=== PATIENT | male | born 1935 ===

== ENCOUNTER 2017-08-01 14:32 | Observation (INO) | payer MEDICARE, MEDICAID ==
[2017-08-01] MEDS ORDERED: Sodium Chloride 0.9% 1,000 ML IV ONE ×2 (15:26→16:00)
--- NOTE | 2017-08-01 15:37 | ED PDOC ---
HPI: Altered Mental Status Time Seen by Provider: 08/01/17 14:52 Chief Complaint (Nursing): Weakness/Neurological Deficit History Per: Patient History/Exam Limitations: Clinical Condition Onset/Duration Of Symptoms: Gradual Onset Of Symptoms: Cannot Confirm Onset Current Symptoms Are (Timing): Still Present Usual Baseline: Alert Oriented Exacerbating Factor(s): Unknown Use Of Anticoag/Antiplatlets: No Character Of Deficits: Right: Weakness, Arm: Weakness, Leg: Weakness Severity: Moderate Additional History Per: Patient, Prior Records Associated Symptoms: Disoriented, Confused, Trouble Concentrating, Weakness. denies: Fever, Chills, Chest Pain, Neck Pain, Headache, Seizure Additional Complaint(s): Patient sent by [facility] for increasing weakness and fatigue. Patient has hx of stroke with Right sided weakness, ambulates with a cane. Per family member , he as been "falling asleep" during conversations and having increased difficultly walking. Past Medical History Reviewed: Historical Data, Nursing Documentation, Vital Signs Vital Signs: Last Vital Signs Temp 97.1 F L 08/01/17 14:43 Pulse 85 08/01/17 14:43 Resp 16 08/01/17 14:43 BP 123/67 08/01/17 14:43 Pulse Ox 100 08/01/17 14:43 - Medical History PMH: Benign Prostatic Hyperplasia, Diabetes, HTN, Hypercholesterolemia, Hyperlipidemia Denies: Asthma, Bronchitis, COPD, Emphysema, Pneumonia, Pulmonary Embolism, Chronic Kidney Disease, Sleep Apnea - Family History Family History: States: Unknown Family Hx - Living Arrangements Living Arrangements: Alone - Social History Current smoker - smoking cessation education provided: No - Home Medications Home Medications: Ambulatory Orders Medication Instructions Recorded Amlodipine Besylate/Benazepril 1 cap PO DAILY 08/01/17 [Lotrel 5-10 mg Capsule] Clopidogrel [Plavix] 75 mg PO DAILY 08/01/17 Famotidine [Pepcid] 20 mg PO BID 08/01/17 Gabapentin [Neurontin] 100 mg PO BID 08/01/17 MetFORMIN [glucoPHAGE] 1,000 mg PO BID 08/01/17 [place]-3 Fatty Acids [[place]-3] 1,000 mg PO BID 08/01/17 Tamsulosin [Flomax] 0.4 mg PO HS 08/01/17 lamoTRIgine [Lamictal] 25 mg PO BID 08/01/17 - Allergies Allergies/Adverse Reactions: Allergies Allergy/AdvReac Type Severity Reaction Status Date / Time No Known Allergies Allergy Verified 04/28/16 15:57 Review of Systems Review Of Systems: ROS cannot be obtained secondary to pt's inabilty to answer questions. Constitutional: Negative for: Fever, Chills Cardiovascular: Negative for: Chest Pain Respiratory: Negative for: Cough, Shortness of Breath Gastrointestinal: Negative for: Nausea, Vomiting, Abdominal Pain Genitourinary Male: Negative for: Dysuria Neurological: Positive for: Weakness (right sided chronic), Numbness (right sided chronic), Confusion, Altered Mental Status Physical Exam - Reviewed Nursing Documentation Reviewed: Yes Vital Signs Reviewed: Yes - Physical Exam Appears: Positive for: Uncomfortable Head Exam: Positive for: ATRAUMATIC, NORMAL INSPECTION, NORMOCEPHALIC Skin: Positive for: Normal Color, Warm Eye Exam: Positive for: Normal appearance, EOMI, PERRL ENT: Positive for: Pharynx Is (clear,mmm) Neck: Positive for: Normal, Painless ROM, Supple, Decreased ROM Cardiovascular/Chest: Positive for: Regular Rate, Rhythm. Negative for: Edema, Bradycardia, Tachycardia Respiratory: Positive for: Normal Breath Sounds. Negative for: Decreased Breath Sounds, Accessory Muscle Use, Crackles, Rales, Rhonchi, Stridor, Wheezing , Respiratory Distress, Plerual Rub Pulses-Radial (L): 2+ Pulses-Radial (R): 2+ Gastrointestinal/Abdominal: Positive for: Normal Exam, Bowel Sounds, Soft. Negative for: Tenderness Back: Positive for: Normal Inspection. Negative for: L CVA Tenderness, R CVA Tenderness Extremity: Negative for: Tenderness, Pedal Edema, Calf Tenderness, Deformity, Swelling Neurologic/Psych: Positive for: Alert, nursery technician II-XII, Oriented, Motor/Sensory Deficits (4/5 strength in rue and rle at baseline), Mood/Affect (flat). Negative for: Aphasia, Facial Droop - Laboratory Results Result Diagrams: 08/01/17 16:25 08/01/17 16:37 - ECG ECG: Positive for: Interpreted By Me ECG Rhythm: Positive for: Normal QRS, Normal ST Segment, Sinus Rhythm. Negative for: ST/T Changes Interpretation Of Abn EKG: rate of 78, no evidence of ischemia O2 Sat by Pulse Oximetry: 100 Pulse Ox Interpretation: Normal - Radiology X-Ray: Interpreted by Me X-Ray Interpretation: No Acute Disease - Progress ED Course And Treament: will admit for anemia and near syncope. pt agree's with plan will transfuse as symptomatic Re-evaluation Time: 17:30 Condition: Improved Disposition - Clinical Impression Clinical Impression: Symptomatic anemia, History of CVA (cerebrovascular accident), Near syncope - Patient ED Disposition Is Patient to be Admitted: Yes Counseled Patient/Family Regarding: Studies Performed, Diagnosis - Disposition Disposition Time: 17:30 Condition: STABLE Forms: [facility] ([facility]) - Pt Status Changed To: Hospital Disposition Of: Inpatient - Admit Certification Admit to Inpatient:: After my assessment, the patient will require hospitalization for at least two midnights. This is because of the severity of symptoms shown, intensity of services needed, and/or the medical risk in this patient being treated as an outpatient. - POA Present On Arrival: None
[2017-08-01 17:00] LABS: BASO # 0.1 K/uL (0.0-0.2); EOS # 0.4 K/uL (0.0-0.7); EOS % 3.9 % (0.0-4.0); HEMATOCRIT 27.5 % (35.0-51.0); LYMPH # 3.2 K/uL (1.0-4.3); LYMPH % 33.2 % (20.0-40.0); MEAN CELL VOLUME 62.5 fl (80.0-94.0); MEAN CORPUSCULAR HGB CONC 30.4 g/dL (33.0-37.0); MEAN PLATELET VOLUME 9.2 fl (7.2-11.7); MONO # 0.6 K/uL (0.0-0.8); MONO % 6.2 % (0.0-10.0); NEUT # 5.4 K/uL (1.8-7.0); NEUT % 55.7 % (50.0-75.0); RED CELL DISTRIBUTION WIDTH 20.6 % (11.5-14.5); WHITE BLOOD COUNT 9.7 K/uL (4.8-10.8)
[2017-08-01 17:02] LABS: PARTIAL THROMBOPLASTIN TIME 28.5 Seconds (25.6-37.1)
[2017-08-01 17:11] LABS: ALB/GLOB RATIO 1.6 (1.0-2.1); ALCOHOL SERUM < 10 mg/dl (0-10); ALKALINE PHOSPHATASE 92 U/L (38-126); ALT/SGPT 62 U/L (21-72); AST/SGOT 53 U/L (17-59); BILIRUBIN,TOTAL 0.4 mg/dl (0.2-1.3); BLOOD UREA NITROGEN 16 mg/dl (9-20); CALCIUM 9.6 mg/dL (8.4-10.2); CARBON DIOXIDE 23 mmol/L (22-30); CHLORIDE 103 mmol/L (98-107); GFR AFRICAN-AMERICAN > 60; GLUCOSE,RANDOM 201 mg/dL (75-110); LIPASE 205 U/L (23-300); POTASSIUM 4.7 MMOL/L (3.6-5.0); SODIUM 137 mmol/l (132-148)
[2017-08-01 17:27] LABS: RBC URINE 1 /hpf (0-3); URINE BILIRUBIN NEGATIVE (NEGATIVE); URINE BLOOD NEGATIVE (NEGATIVE); URINE COLOR YELLOW (YELLOW); URINE GLUCOSE (UA) 150 mg/dL (Normal); URINE KETONE NEGATIVE (NEGATIVE); URINE LEUKOCYTE ESTERASE NEG Leu/uL (Negative); URINE PROTEIN NEGATIVE (NEGATIVE); URINE UROBILINOGEN 0.2-1.0 mg/dL (0.2-1.0); WBC URINE 2 /hpf (0-5)
--- NOTE | 2017-08-01 18:55 | RAD ---
PROCEDURE: CHEST RADIOGRAPH, 1 VIEW HISTORY: Altered mental status. COMPARISON: 04/28/2016. FINDINGS: LUNGS: Clear. PLEURA: No pneumothorax or pleural fluid seen. CARDIOVASCULAR: No radiographic findings to suggest acute or significant cardiovascular disease. OSSEOUS STRUCTURES: No significant abnormalities. VISUALIZED UPPER ABDOMEN: Normal. OTHER FINDINGS: None. IMPRESSION: No active disease. No acute/significant interval changes. Concordant results with the preliminary interpretation rendered by the emergency department physician procedure.
--- NOTE | 2017-08-01 20:25 | CP.PCM.HP ---
History of Present Illness - History of Present Illness History of Present Illness: CC: Altered mental status This is an 82 year old male with a past medical history significant for ischemic with residual right sided weakness, chronic iron deficiency anemia of uncertain hypertension, hyperlipidemia, Type 2 diabetes mellitus, obesity, BPH , who presents to the ED sent by his PMD with the complaint of increased generalized weakness and fatigue over the past 3 days. The patient states that his fatigue has been getting progressively worse and currently it is hard for him to stay awake. He says that occasionally he feels lightheaded when standing. He has no other complaints at this time. He denies cp, sob, n/v/d, recent illness, fever, chills. Rest of ROS as below. In the ED, the patient was found to be hemodynamically stable. Given his previous history of stroke, a CT head was done which showed no new acute intracranial abnormalities, only evidence of previous CVA. Dr. Pinto was called from the ED for further neurologic workup. Laboratory results reveal a H & H of 8.3/27.5, which is lower that his norm which is a hemoglobin around 9. The patient is to be placed on telemetry observation for 1 unit of PRBC transfusion , as well as further workup for his alteration of mental status. PMD: Marlena Present on Admission - Present on Admission Any Indicators Present on Admission: No Review of Systems - Constitutional Constitutional: Daytime Sleepiness, Fatigue, Lethargy. absent: Anorexia, Chills , Excessive Sweating, Fever, Frequent Falls, Headache, Increased Appetite - EENT Eyes: absent: Blind Spots, Blurred Vision, Decreased Night Vision, Diplopia, Discharge Ears: absent: Decreased Hearing, Ear Discharge, Disequilibrium Nose/Mouth/Throat: absent: Epistaxis, Nasal Congestion, Nasal Trauma, Nose Pain - Cardiovascular Cardiovascular: absent: Chest Pain, Chest Pain at Rest, Chest Pain with Activity , Claudication, Diaphoresis - Respiratory Respiratory: absent: Cough, Dyspnea, Dyspnea on Exertion, Wheezing, Snoring, Pain on Inspiration - Gastrointestinal Gastrointestinal: absent: Abdominal Pain, Belching, Bloating, Change in Stool Character, Constipation, Cramping, Diarrhea, Excessive Flatus - Genitourinary Genitourinary: absent: Change in Urinary Stream, Difficulty Urinating, Hematuria , Pyuria, Nocturia, Urinary Hesitance, Urinary Urgency - Musculoskeletal Musculoskeletal: absent: Abnormal Gait, Arthralgias, Atrophy, Joint Swelling, Limited Range of Motion, Muscle Weakness - Integumentary Integumentary: absent: Change in Pigmentation, Changing Lesions, Furuncle, Hirsutism, Lesions, New Lesions, Photosensitivity, Pruritus - Neurological Neurological: Dizziness, Focal Weakness (Residual RUE weakness from previous CVA , denies any new weakness). absent: Numbness, Frequent Falls, Headaches, Lack of Coordination, Loss of Vision, Paresthesias, Syncope - Endocrine Endocrine: Fatigue. absent: Change in Body Appearance, Change in Libido, Deepening of Voice, Excessive Sweating, Heat Intolorance Past Patient History - Past Medical History & Family History Past Medical History?: Yes - Past Social History Smoking Status: Light Smoker < 10 Cigarettes Daily - CARDIAC Hx Hypercholesterolemia: Yes Hx Hypertension: Yes - PULMONARY Hx Asthma: No Hx Bronchitis: No Hx Chronic Obstructive Pulmonary Disease (COPD): No Hx Emphysema: No Hx Pneumonia: No Hx Pulmonary Embolism: No Hx Sleep Apnea: No - NEUROLOGICAL HX Cerebrovascular Accident: Yes (x2) - HEENT Hx Difficulty Chewing: Yes - RENAL Hx Chronic Kidney Disease: No - ENDOCRINE/METABOLIC Hx Diabetes Mellitus Type 2: Yes - HEMATOLOGICAL/ONCOLOGICAL Hx Blood Disorders: No - INTEGUMENTARY Hx Dermatological Problems: No - MUSCULOSKELETAL/RHEUMATOLOGICAL Hx Musculoskeletal Disorders: No Hx Falls: No - GASTROINTESTINAL Hx Gastrointestinal Disorders: No - GENITOURINARY/GYNECOLOGICAL Hx Genitourinary Disorders: Yes - PSYCHIATRIC Hx Psychophysiologic Disorder: No Hx Substance Use: No - ANESTHESIA Hx Anesthesia: No Meds Allergies/Adverse Reactions: Allergies Allergy/AdvReac Type Severity Reaction Status Date / Time No Known Allergies Allergy Verified 04/28/16 15:57 Physical Exam - Constitutional Appears: Confused, Other Additional comments: Lethargic, slow to respond to questions, but does answer appropriately - Head Exam Head Exam: ATRAUMATIC, NORMAL INSPECTION, NORMOCEPHALIC - Eye Exam Eye Exam: EOMI, Normal appearance, PERRL Pupil Exam: NORMAL ACCOMODATION, PERRL - ENT Exam ENT Exam: Mucous Membranes Moist, Normal Exam - Neck Exam Neck exam: Positive for: Normal Inspection - Respiratory Exam Respiratory Exam: Clear to Auscultation Bilateral, NORMAL BREATHING PATTERN - Cardiovascular Exam Cardiovascular Exam: REGULAR RHYTHM, RRR, +S1, +S2 - GI/Abdominal Exam GI & Abdominal Exam: Normal Bowel Sounds, Soft. absent: Tenderness - Rectal Exam Rectal Exam: Deferred - Extremities Exam Extremities exam: Positive for: normal inspection - Back Exam Back exam: NORMAL INSPECTION - Neurological Exam Neurological exam: Altered, CN II-XII Intact, Oriented x3 Additional comments: RUE 3/5 muscle strength, rest of his extremities 5/5 muscle strength - Psychiatric Exam Psychiatric exam: Normal Affect, Normal Mood Results - Vital Signs Recent Vital Signs: Last Vital Signs Temp 97.1 F L 08/01/17 14:43 Pulse 85 08/01/17 14:43 Resp 16 08/01/17 14:43 BP 123/67 08/01/17 14:43 Pulse Ox 100 08/01/17 19:34 - Labs Result Diagrams: 08/01/17 16:25 08/01/17 16:37 Labs: Laboratory Results - last 24 hr 08/01/17 08/01/17 08/01/17 16:00 16:25 16:37 WBC 9.7 RBC 4.40 Hgb 8.3 L Hct 27.5 L MCV 62.5 L D MCH 19.0 L MCHC 30.4 L RDW 20.6 H Plt Count 217 MPV 9.2 Neut % (Auto) 55.7 Lymph % (Auto) 33.2 [place] % (Auto) 6.2 Eos % (Auto) 3.9 Baso % (Auto) 1.0 Neut # 5.4 Lymph # 3.2 [place] # 0.6 Eos # 0.4 Baso # 0.1 PT 11.6 INR 1.1 APTT 28.5 Sodium 137 Potassium 4.7 Chloride 103 Carbon Dioxide 23 Anion Gap 16 BUN 16 Creatinine 0.8 Est GFR ( Amer) > 60 Est GFR (Non-Af Amer) > 60 Random Glucose 201 H Lactic Acid Calcium 9.6 Total Bilirubin 0.4 AST 53 ALT 62 Alkaline Phosphatase 92 Ammonia Troponin I < 0.0120 Total Protein 7.0 Albumin 4.3 Globulin 2.7 Albumin/Globulin Ratio 1.6 Lipase 205 Urine Color Urine Clarity Urine pH Ur Specific [place] Urine Protein Urine Glucose (UA) Urine Ketones Urine Blood Urine Nitrate Urine Bilirubin Urine Urobilinogen Ur Leukocyte Esterase Urine RBC (Auto) Urine Microscopic WBC Ur Squamous Epith Cells Urine Opiates Screen Urine Methadone Screen Ur Barbiturates Screen Ur Phencyclidine Scrn Ur Amphetamines Screen U Benzodiazepines Scrn U Oth Cocaine Metabols U Cannabinoids Screen Alcohol, Quantitative < 10 08/01/17 08/01/17 08/01/17 16:37 16:37 17:10 WBC RBC Hgb Hct MCV MCH MCHC RDW Plt Count MPV Neut % (Auto) Lymph % (Auto) [place] % (Auto) Eos % (Auto) Baso % (Auto) Neut # Lymph # [place] # Eos # Baso # PT INR APTT Sodium Potassium Chloride Carbon Dioxide Anion Gap BUN Creatinine Est GFR ( Amer) Est GFR (Non-Af Amer) Random Glucose Lactic Acid 2.7 H Calcium Total Bilirubin AST ALT Alkaline Phosphatase Ammonia < 9 L Troponin I Total Protein Albumin Globulin Albumin/Globulin Ratio Lipase Urine Color Urine Clarity Urine pH Ur Specific [place] Urine Protein Urine Glucose (UA) Urine Ketones Urine Blood Urine Nitrate Urine Bilirubin Urine Urobilinogen Ur Leukocyte Esterase Urine RBC (Auto) Urine Microscopic WBC Ur Squamous Epith Cells Urine Opiates Screen Negative Urine Methadone Screen Negative Ur Barbiturates Screen Negative Ur Phencyclidine Scrn Negative Ur Amphetamines Screen Negative U Benzodiazepines Scrn Negative U Oth Cocaine Metabols Negative U Cannabinoids Screen Negative Alcohol, Quantitative 08/01/17 08/01/17 17:10 19:20 WBC RBC Hgb Hct MCV MCH MCHC RDW Plt Count MPV Neut % (Auto) Lymph % (Auto) [place] % (Auto) Eos % (Auto) Baso % (Auto) Neut # Lymph # [place] # Eos # Baso # PT INR APTT Sodium Potassium Chloride Carbon Dioxide Anion Gap BUN Creatinine Est GFR ( Amer) Est GFR (Non-Af Amer) Random Glucose Lactic Acid 2.1 Calcium Total Bilirubin AST ALT Alkaline Phosphatase Ammonia Troponin I Total Protein Albumin Globulin Albumin/Globulin Ratio Lipase Urine Color Yellow Urine Clarity Clear Urine pH 6.0 Ur Specific [place] 1.013 Urine Protein Negative Urine Glucose (UA) 150 Urine Ketones Negative Urine Blood Negative Urine Nitrate Negative Urine Bilirubin Negative Urine Urobilinogen 0.2-1.0 Ur Leukocyte Esterase Neg Urine RBC (Auto) 1 Urine Microscopic WBC 2 Ur Squamous Epith Cells < 1 Urine Opiates Screen Urine Methadone Screen Ur Barbiturates Screen Ur Phencyclidine Scrn Ur Amphetamines Screen U Benzodiazepines Scrn U Oth Cocaine Metabols U Cannabinoids Screen Alcohol, Quantitative - EKG Data EKG Interpreted by: ER Physician EKG shows normal: Sinus rhythm, [place], Intervals, QRS complexes, ST-T waves Assessment & Plan - Assessment and Plan (Free Text) Plan: This is an 82 year old male with a past medical history significant for ischemic with residual right sided weakness, chronic iron deficiency anemia of uncertain hypertension, hyperlipidemia, Type 2 diabetes mellitus, obesity, BPH , who presents to [facility] with alteration of mental status 1) Altered mental status, likely from metabolic encephalopathy and/or anemia of chronic disease, r/o CVA, rule out seizure activity. No evidence of active infectious process. Drug toxicology negative 2) History of ischemic CVA 3) Acute on chronic iron deficiency anemia 4) Hypertension 5) Hyperlipidemia 6) Type 2 Diabetes mellitus 7) Obesity 8) BPH PLAN - Place on telemetry observation - Consultation with Dr. Pinto from ED, will f/u for additional recommendations - Transfuse 1 unit PRBC now. F/U repeat CBC in AM - Guiac the stool to ensure no active GI bleed - Continue Plavix 75 mg po daily - Continue Amlodipine and Lisinopril for htn control - Continue Metformin, add lispro sliding scale for insulin coverage while in house - Continue Neurontin 100 mg po BID for neuropathic pain - Continue [place]-3 Fatty Acids 1000 mg po BID - Continue Flomax for BPH - DVT propohylaxis with heparin sq - Careful monitoring of vitals - Date & Time Date: 08/01/17 Time: 20:30
--- NOTE | 2017-08-01 22:07 | CP.PCM.PCO ---
Physician Communication Note - Physician Communication Note Physician Communication Note: Consent obtained for Blood transfusion. Risk and benifits were explained.
[2017-08-01] MEDS: Insulin Lispro (humaLOG) 100 Units/ml Inj SC SCH (22:13)
[2017-08-01 23:43] VITALS: RESP 20
[2017-08-02 06:48] LABS: HEMATOCRIT 31.1 % (35.0-51.0); MEAN CELL VOLUME 64.7 fl (80.0-94.0); MEAN CORPUSCULAR HEMOGLOBIN 19.7 pg (27.0-31.0); MEAN CORPUSCULAR HGB CONC 30.4 g/dL (33.0-37.0); RED CELL DISTRIBUTION WIDTH 22.8 % (11.5-14.5); WHITE BLOOD COUNT 10.4 K/uL (4.8-10.8)
[2017-08-02 06:51] LABS: BLOOD UREA NITROGEN 12 mg/dl (9-20); CALCIUM 9.4 mg/dL (8.4-10.2); CARBON DIOXIDE 21 mmol/L (22-30); CHLORIDE 105 mmol/L (98-107); GFR AFRICAN-AMERICAN > 60; GLUCOSE,RANDOM 169 mg/dL (75-110); POTASSIUM 4.4 MMOL/L (3.6-5.0); SODIUM 138 mmol/l (132-148)
--- NOTE | 2017-08-02 08:25 | CT ---
PROCEDURE: CT HEAD WITHOUT CONTRAST. HISTORY: COMPARISON: Head CT without contrast 04/28/2016. TECHNIQUE: Axial computed tomography images were obtained through the head/brain without intravenous contrast. Radiation dose: Total exam DLP = 844 mGy-cm. This CT exam was performed using one or more of the following dose reduction techniques: Automated exposure control, adjustment of the mA and/or kV according to patient size, and/or use of iterative reconstruction technique. FINDINGS: HEMORRHAGE: No intracranial hemorrhage. BRAIN: Age related neuro degenerate changes are again identified comprised of diffuse cerebral atrophy chronic microangiopathy once again. The exam is unchanged in the interval. Subcortical calcification at the left frontal lobe is again seen posteriorly likely a postinflammatory or postinfectious. No local edema is seen and there is no mass-effect related. No suspicious extra-axial findings identified. VENTRICLES: Unremarkable. No hydrocephalus. CALVARIUM: Unremarkable. PARANASAL SINUSES: Multifocal sinusitis seen affecting the ethmoid air cells diffuse as well as the left frontal sinus including polyps or cysts at the left frontal sinus though slightly diminished in the interval. MASTOID AIR CELLS: Unremarkable as visualized. No inflammatory changes. OTHER FINDINGS: None. IMPRESSION: Stable age-related age-appropriate neuro degenerative changes are identified throughout the cerebrum. No acute intracranial findings are identified grossly. Follow-up MRI or CT are available if clinically warranted. Diminished left frontal sinus disease with recurrent persistent limited bilateral ethmoid sinusitis.
[2017-08-02] MEDS ORDERED: Omega-3-Acid Ethyl Esters 1 GM Cap PO SCH (09:00)
[2017-08-02] MEDS: Insulin Lispro (humaLOG) 100 Units/ml Inj SC SCH (09:09)
--- NOTE | 2017-08-02 10:46 | CP.PCM.DIS ---
Provider - Provider Date of Admission: 08/01/17 19:29 Attending physician: Saurav Franks DO Primary care physician: Dr. Mendiola Time Spent in preparation of Discharge (in minutes): 20 Hospital Course - Lab Results Lab Results: Most Recent Lab Values WBC 10.4 K/uL (4.8-10.8) 08/02/17 05:20 RBC 4.81 Mil/uL (4.40-5.90) 08/02/17 05:20 Hgb 9.5 g/dL (12.0-18.0) L 08/02/17 05:20 Hct 31.1 % (35.0-51.0) L 08/02/17 05:20 MCV 64.7 fl (80.0-94.0) L D 08/02/17 05:20 MCH 19.7 pg (27.0-31.0) L 08/02/17 05:20 MCHC 30.4 g/dL (33.0-37.0) L 08/02/17 05:20 RDW 22.8 % (11.5-14.5) H 08/02/17 05:20 Plt Count 206 K/uL (130-400) 08/02/17 05:20 MPV 9.2 fl (7.2-11.7) 08/01/17 16:25 Neut % (Auto) 55.7 % (50.0-75.0) 08/01/17 16:25 Lymph % (Auto) 33.2 % (20.0-40.0) 08/01/17 16:25 [place] % (Auto) 6.2 % (0.0-10.0) 08/01/17 16:25 Eos % (Auto) 3.9 % (0.0-4.0) 08/01/17 16:25 Baso % (Auto) 1.0 % (0.0-2.0) 08/01/17 16:25 Neut # 5.4 K/uL (1.8-7.0) 08/01/17 16:25 Lymph # 3.2 K/uL (1.0-4.3) 08/01/17 16:25 [place] # 0.6 K/uL (0.0-0.8) 08/01/17 16:25 Eos # 0.4 K/uL (0.0-0.7) 08/01/17 16:25 Baso # 0.1 K/uL (0.0-0.2) 08/01/17 16:25 PT 11.6 Seconds (9.8-13.1) 08/01/17 16:00 INR 1.1 (0.9-1.2) 08/01/17 16:00 APTT 28.5 Seconds (25.6-37.1) 08/01/17 16:00 Sodium 138 mmol/l (132-148) 08/02/17 05:20 Potassium 4.4 MMOL/L (3.6-5.0) 08/02/17 05:20 Chloride 105 mmol/L (98-107) 08/02/17 05:20 Carbon Dioxide 21 mmol/L (22-30) L 08/02/17 05:20 Anion Gap 16 (10-20) 08/02/17 05:20 BUN 12 mg/dl (9-20) 08/02/17 05:20 Creatinine 0.7 mg/dL (0.8-1.5) L 08/02/17 05:20 Est GFR ( Amer) > 60 08/02/17 05:20 Est GFR (Non-Af Amer) > 60 08/02/17 05:20 POC Glucose (mg/dL) 164 mg/dL (65-110) H 08/02/17 05:46 Random Glucose 169 mg/dL (75-110) H 08/02/17 05:20 Lactic Acid 2.1 MMOL/L (0.7-2.1) 08/01/17 19:20 Calcium 9.4 mg/dL (8.4-10.2) 08/02/17 05:20 Total Bilirubin 0.4 mg/dl (0.2-1.3) 08/01/17 16:37 AST 53 U/L (17-59) 08/01/17 16:37 ALT 62 U/L (21-72) 08/01/17 16:37 Alkaline Phosphatase 92 U/L (38-126) 08/01/17 16:37 Ammonia < 9 umo/L (16-60) L 08/01/17 16:37 Troponin I < 0.0120 ng/mL (0.00-0.120) 08/01/17 16:37 Total Protein 7.0 G/DL (6.3-8.2) 08/01/17 16:37 Albumin 4.3 g/dL (3.5-5.0) 08/01/17 16:37 Globulin 2.7 gm/dL (2.2-3.9) 08/01/17 16:37 Albumin/Globulin Ratio 1.6 (1.0-2.1) 08/01/17 16:37 Lipase 205 U/L (23-300) 08/01/17 16:37 Urine Color Yellow (YELLOW) 08/01/17 17:10 Urine Clarity Clear (Clear) 08/01/17 17:10 Urine pH 6.0 (5.0-8.0) 08/01/17 17:10 Ur Specific [place] 1.013 (1.003-1.030) 08/01/17 17:10 Urine Protein Negative mg/dL (NEGATIVE) 08/01/17 17:10 Urine Glucose (UA) 150 mg/dL (Normal) 08/01/17 17:10 Urine Ketones Negative mg/dL (NEGATIVE) 08/01/17 17:10 Urine Blood Negative (NEGATIVE) 08/01/17 17:10 Urine Nitrate Negative (NEGATIVE) 08/01/17 17:10 Urine Bilirubin Negative (NEGATIVE) 08/01/17 17:10 Urine Urobilinogen 0.2-1.0 mg/dL (0.2-1.0) 08/01/17 17:10 Ur Leukocyte Esterase Neg Tariq/uL (Negative) 08/01/17 17:10 Urine RBC (Auto) 1 /hpf (0-3) 08/01/17 17:10 Urine Microscopic WBC 2 /hpf (0-5) 08/01/17 17:10 Ur Squamous Epith Cells < 1 /hpf (0-5) 08/01/17 17:10 Urine Opiates Screen Negative (NEGATIVE) 08/01/17 17:10 Urine Methadone Screen Negative (NEGATIVE) 08/01/17 17:10 Ur Barbiturates Screen Negative (NEGATIVE) 08/01/17 17:10 Ur Phencyclidine Scrn Negative (NEGATIVE) 08/01/17 17:10 Ur Amphetamines Screen Negative (NEGATIVE) 08/01/17 17:10 U Benzodiazepines Scrn Negative (NEGATIVE) 08/01/17 17:10 U Oth Cocaine Metabols Negative (NEGATIVE) 08/01/17 17:10 U Cannabinoids Screen Negative (NEGATIVE) 08/01/17 17:10 Alcohol, Quantitative < 10 mg/dl (0-10) 08/01/17 16:37 Blood Type O POSITIVE 08/01/17 20:00 Antibody Screen Negative 08/01/17 20:00 Crossmatch See Detail 08/01/17 20:00 BBK History Checked Patient has bt 08/01/17 20:00 - Hospital Course Hospital Course: 82 year old male with a past medical history significant for 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 The patient states that his fatigue has been getting progressively worse and currently it is hard for him to stay awake. He says that occasionally he feels lightheaded when standing. He has no other complaints at this time. He denies cp, sob, n/v/d, recent illness, fever, chills. Rest of ROS In the ED, the patient was found to be hemodynamically stable. Given his previous history of stroke, a CT head was done which showed no new acute intracranial abnormalities, only evidence of previous CVA. 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 Generalized weakness most likely secondary to chronic anemia and de conditioning transfused 1unit PRBC PT at home no signs of infection no CVA 2. History of ischemic CVA- continue plavix. Not on Statin . started atorvastatin Follow up with PMD 3. Acute on chronic iron deficiency anemia- transfused 1 unit PRBC . started ferrous sulfate 4.Hypertension- on norvasc 5.Hyperlipidemia=- started atorvastatin 6. Type 2 Diabetes mellitus- on metformin 7. Obesity 8. BPH - on flomax Discharge Exam - Head Exam Head Exam: ATRAUMATIC, NORMAL INSPECTION, NORMOCEPHALIC - Eye Exam Eye Exam: EOMI, Normal appearance, PERRL Pupil Exam: NORMAL ACCOMODATION - ENT Exam ENT Exam: Normal Exam - Neck Exam Neck exam: Full Rom, Normal Inspection - Respiratory Exam Respiratory Exam: Clear to PA & Lateral, NORMAL BREATHING PATTERN. absent: Rhonchi, Wheezes - Cardiovascular Exam Cardiovascular Exam: REGULAR RHYTHM, +S1, +S2. absent: JVD - GI/Abdominal Exam GI & Abdominal Exam: Normal Bowel Sounds, Soft. absent: Distended, Guarding, Rebound, Tenderness - Rectal Exam Rectal Exam: Deferred - Extremities Exam Extremities exam: normal capillary refill, normal inspection, pedal pulses present - Back Exam Back exam: NORMAL INSPECTION - Neurological Exam Neurological exam: Alert, CN II-XII Intact, Oriented x3 Additional comments: right upper extremity weakness 4/5 ( old ) - Psychiatric Exam Psychiatric exam: Normal Affect, Normal Mood - Skin Skin Exam: Dry, Intact, Normal Color, Warm Discharge Plan - Discharge Medications Prescriptions: Atorvastatin [Lipitor] 20 mg PO DAILY #30 tab Ferrous Sulfate [Feosol] 325 mg PO BID #60 tab - Follow Up Plan Condition: STABLE Disposition: HOME/ ROUTINE Patient education suggested?: Yes Additional Instructions: PT as out patient Referrals: Corey Mendiola MD [Family Provider] -
[2017-08-02 11:20] LABS: CHOLESTEROL 199 mg/dL (0-199)
--- NOTE | 2017-08-02 11:23 | CARD ---
APPROVED REPORT EKG Measurement Heart [id number] <Conclusion> Normal sinus rhythm Nonspecific ST abnormality Abnormal ECG
[2017-08-02 12:49] VITALS: BP 121/72; PULSE 84; TEMP 97.4; O2SAT 97
== END 2017-08-02 14:23 | disposition home or self-care (01) ==
LOC: H.ER 14:32 → H.ERHOLD 19:29 → H.TEL 20:50
PROVIDERS: ADMIT Internal Medicine; ATTEND Internal Medicine
DX: R53.1 Weakness (principal); E11.9 Type 2 diabetes mellitus without complications; E66.9 Obesity, unspecified; Z68.30 Body mass index [BMI] 30.0-30.9, adult; E78.00 Pure hypercholesterolemia, unspecified; E78.5 Hyperlipidemia, unspecified; I10 Essential (primary) hypertension; N40.0 Benign prostatic hyperplasia without lower urinary tract symptoms; D50.9 Iron deficiency anemia, unspecified; Z86.73 Personal history of transient ischemic attack (TIA), and cerebral infarction without residual deficits
CPT/HCPCS: 36415; 36430; 70450; 71010; 80048; 80053; 80061; 81003; 82140; 82948; 83605; 83690; 84484; 85025; 85027; 85610; 85730; 86850; 86900; 86920; 87086; 93005; 96360; 97116; 97161; 99285; G0378; G0480; G8978; G8979; G8980; J7040; P9051

== ENCOUNTER 2018-05-14 10:08 | Emergency (ER) | payer MEDICARE, MEDICAID ==
--- NOTE | 2018-05-14 11:28 | ED PDOC ---
HPI:STROKE - Time Time: 10:28 - Historian Historian: Patient - Chief Complaint Chief Complaint: Weakness - Onset Date: 05/13/18 Time: 08:00 Onset: Yesterday (evening) - Location Location: Difficult to localize - Radiation Radiation: None - Severity of pain Maximum severity:: None - Associated Symptoms Associated symptoms:: Anticoagulant use (Pt denies however plavix filled end of March 2018 ) - Exacerbated by Exacerbated by:: Walking - Relieved by Relieved by:: Remaining Still - TPA Reason tPA is not being Administered: Times duration does not meet criteria - Notes: Notes:: 83 yo male with history of CVA, TIA, DM, HTN, AVM and PVD presents with feeling weakness in both lower extremities since last night. Pt states this has happened in the past. Pt states it is worse when he tries to walk and he now feels like he is too weak to walk. Pt normally walks with a cane at home. PT denies falls at home recently however EMS informed ROLLY Naidu that he has fallen at home last night. Pt denies headache, nausea, vomiting, chest pain, SOB. <Daniela Lux - Last Filed: 05/19/18 17:40> NIHSS Stroke Scale - Date/Time Evaluation Performed Date Performed: 05/14/18 Time Performed: 11:06 When Was NIHSS Performed: Baseline - How Severe is the Stroke Level of Consciousness: 1=Drowsy LOC to Questions: 0=Both comments correct LOC to commands: 0=Obeys both correctly Best Gaze: 0=Normal Visual: 3=Bilateral (PT unable to follow directions to completed task) Facial: 1=Minor asymmetry Motor Arm - Left: 0=No drift Motor Arm - Right: 0=No drift Motor Leg - Left: 0=No drift Motor Leg - Right: 0=No drift Limb Ataxia: 0=Absent Sensory: 0=Normal Best Language: 1=Mild to moderate aphasia Dysarthia: 1=Mild to moderate slurring Extinction & Inattention (Neglect): 0=Normal, no object Score: 7 <Daniela Lux - Last Filed: 05/19/18 17:40> rTPA Inclusion/Exclusion - Refusal of Treatment Patient Refused Treatment: No - Inclusion Criteria for Altepase Patient is 18 years or Older: Yes The Clinical Diagnosis of Ischemic Stroke That is Causing a Potentially Disabling Neurological Deficit: No Time of Onset is Well Established to be Less Than 270 Minute Before Treatment Would Begin: No - Exclusion Criteria for Altepase Uncontrolled Hypertension at Time of Treatment (Systolic BP above 185 or Diastolic BP above 110 mmHg): No History of: Intracranial hemorrhage Active Internal Bleeding: No Known Bleeding Diathesis Including but Not Limited to: Platelets Below 100,000/ mm,PTT Above 40 sec After Heparin Use, Current Use of Oral Anitcoagulant With INR Greater Than 1.7 or PT Greater Than 15 secs: No Evidence of an Intracranial Hemorrhage: Yes Evidence of Major Acute Infarct With Signs Greater Than 1/3 MCA Territory: No Suspicion of Subarachnoid Hemorrhage on Pretreatment Evaluation Even if CT Head Negative For Hemorrhage: No - Warning to TPA With Conditions Additional Condition (For 3-4.5 Hour Window): Age Greater Than 80, Prior Stroke and Diabetes <Daniela Lux - Last Filed: 05/19/18 17:40> Past Medical History Vital Signs: Last Vital Signs Temp 98.2 F 05/14/18 16:34 Pulse 95 H 05/14/18 16:34 Resp 23 05/14/18 16:34 BP 181/84 H 05/14/18 16:34 Pulse Ox 98 05/14/18 16:20 <Sharan Guerrero III - Last Filed: 05/14/18 18:03> Reviewed: Historical Data, Nursing Documentation, Vital Signs Vital Signs: Last Vital Signs Temp 98.5 F 05/14/18 10:39 Pulse 80 05/14/18 10:39 Resp 18 05/14/18 10:39 BP 169/80 H 05/14/18 10:39 Pulse Ox 99 05/14/18 10:39 - Medical History PMH: Benign Prostatic Hyperplasia, Diabetes, HTN, Hypercholesterolemia, Hyperlipidemia Denies: Asthma, Bronchitis, COPD, Emphysema, Pneumonia, Pulmonary Embolism, Chronic Kidney Disease, Sleep Apnea - Surgical History Surgical History: No Surg Hx - Family History Family History: States: Unknown Family Hx - Living Arrangements Living Arrangements: With Family (, however patient states has been sick) - Social History Current smoker - smoking cessation education provided: No Ex-Smoker (has not smoked in the last 12 months): No Alcohol: None Drugs: Denies <Daniela Lux - Last Filed: 06/25/18 17:40> - Home Medications Home Medications: Ambulatory Orders Medication Instructions Recorded Amlodipine Besylate/Benazepril 1 cap PO DAILY 08/01/17 [Lotrel 5-10 mg Capsule] Clopidogrel [Plavix] 75 mg PO DAILY 08/01/17 Famotidine [Pepcid] 20 mg PO BID 08/01/17 Gabapentin [Neurontin] 100 mg PO Q12 08/01/17 MetFORMIN [glucoPHAGE] 1,000 mg PO BID 08/01/17 lamoTRIgine [Lamictal] 25 mg PO Q12 08/01/17 Fenofibrate [Triglide] 160 mg PO DAILY 05/14/18 [id number] Ethyl Esters 1 GM 1 gm PO Q12 05/14/18 [Lovaza] SITagliptin [Januvia] 100 mg PO DAILY 05/14/18 - Allergies Allergies/Adverse Reactions: Allergies Allergy/AdvReac Type Severity Reaction Status Date / Time No Known Allergies Allergy Verified 04/28/16 15:57 Review of Systems ROS Statement: Except As Marked, All Systems Reviewed And Found Negative Constitutional: Negative for: Fever, Chills Cardiovascular: Negative for: Chest Pain, Palpitations Respiratory: Negative for: Cough, Shortness of Breath Gastrointestinal: Negative for: Nausea, Vomiting, Abdominal Pain Neurological: Positive for: Altered Mental Status (Does not know date ). Negative for: Numbness, Incoordination, Headache, Dizziness <Daniela Lux - Last Filed: 05/19/18 17:40> Physical Exam - Reviewed Nursing Documentation Reviewed: Yes Vital Signs Reviewed: Yes - Physical Exam Appears: Positive for: Well, Non-toxic, No Acute Distress Head Exam: Positive for: ATRAUMATIC, NORMAL INSPECTION, NORMOCEPHALIC Skin: Positive for: Normal Color, Warm, DRY Eye Exam: Positive for: Normal appearance, EOMI, PERRL ENT: Positive for: Normal ENT Inspection Neck: Positive for: Normal, Painless ROM Cardiovascular/Chest: Positive for: Regular Rate, Rhythm Respiratory: Positive for: CNT, Normal Breath Sounds Gastrointestinal/Abdominal: Positive for: Normal Exam, Soft Back: Positive for: Normal Inspection Extremity: Positive for: Normal ROM, Other (Slight weakness right UE) Neurologic/Psych: Positive for: Alert, Oriented, Aphasia (Slight ), Facial Droop (Slight). Negative for: Gait (Unable to be assessed ) <Daniela Lux - Last Filed: 05/19/18 17:40> - Laboratory Results Result Diagrams: 05/14/18 11:21 05/14/18 11:21 <Sharan Guerrero III - Last Filed: 05/14/18 18:03> - Laboratory Results Result Diagrams: 05/14/18 11:21 05/14/18 11:21 - ECG O2 Sat by Pulse Oximetry: 99 Pulse Ox Interpretation: Normal <Daniela Lux - Last Filed: 05/19/18 17:40> Medical Decision Making Medical Decision Making: attending note Patient seen and examined, agree w findings. I took over care when ICH recognized. 83yo M apparently on plavix w hx CVA, residual R sided weakness, AVM discovered on that admission 2 yrs ago. Now today presents w vague c/o generalized weakness and poor ambulation, continued R sided weakness. Unknown onset, poor historian. Niece later arrived stating has had falls over last several weeks, notes new dysarthria and confusion. Initial CT showed L ICH likely near area of AVM Discussed case w Dr Fishman who rec transfer for intervention, did not recommend platelets, known to take plavix although ? compliance. D/w Dr Chavez who saw patient, she discussed case w Dr Bonilla, rec repeat CT in 4hrs if expanding will transfer ICU Dr Berry also made aware for possible admission but repeat CT showed slight expansion of hematoma hence decision to transfer to [facility]. Dr Carolina at ICU criss aware, accepted by Dr Martins hospitalist. Niece and patient consented to transfer. Mental status remains alert, intermittent confusion, R arm/leg strength 3/5 w dysarthria ICU initiated cardene drip, to titrate. critical care time 90minutes <Sharan Guerrero III - Last Filed: 05/14/18 18:03> Medical Decision Making: EKG - Sinus rhythm with non-specific changes at [address] - Interval left posterior frontal/parietal intra cerebral hematoma with surrounding edema and possible minimal -mild mass-effect on the left frontal horn. No midline shift. No dilatation of the right lateral ventricle appreciated. No interval dilatation of other particular segments noted. Prior to this report dictation, the urgent findings of a left intercerebral hematoma was directly called in to the ER physician Dr. Guerrero at approximately 11 :18 am. Elevated WBC, mild anemia. <Daniela Lux - Last Filed: 05/19/18 17:40> Disposition <Sharan Guerrero III - Last Filed: 05/14/18 18:03> - Disposition Disposition: Other Institution Disposition Time: 18:15 <Daniela Lux - Last Filed: 05/19/18 17:40> - Clinical Impression Clinical Impression: AVM (arteriovenous malformation) brain, Intracranial hemorrhage
--- NOTE | 2018-05-14 11:32 | CT ---
PROCEDURE: CT HEAD WITHOUT CONTRAST. HISTORY: LE weakness, hx CVA COMPARISON: 08/01/2017 TECHNIQUE: Axial computed tomography images were obtained through the head/brain without intravenous contrast. Radiation dose: Total exam DLP = 823 mGy-cm. This CT exam was performed using one or more of the following dose reduction techniques: Automated exposure control, adjustment of the mA and/or kV according to patient size, and/or use of iterative reconstruction technique. FINDINGS: HEMORRHAGE: There is an interval left posterior frontal/parietal lobe 4.2 x 2.7 cm hematoma with surrounding edema and ipsilateral effacement of the regional left cortical sulci here. The craniocaudal extent is 4.1 cm. BRAIN: There are similar dural calcifications present. An similar punctate mostly left-sided knowles calcifications present frontal lobe left parietal lobe as well. . Minimal/mild mass effect on the left frontal horn soft left lateral ventricle is possible comparing the current study with the prior study. No midline shift seen Background cerebral atrophy elsewhere background periventricular hypodense micro vascular ischemic disease is also inferred and re- suggested. A left basal ganglionic known is similar in appearance VENTRICLES: As above CALVARIUM: Unremarkable. PARANASAL SINUSES: Paranasal sinus inflammatory changes including a large left frontal air cell retention cyst and/or polyp is renoted. MASTOID AIR CELLS: Unremarkable as visualized. No inflammatory changes. OTHER FINDINGS: None. IMPRESSION: Interval left posterior frontal/parietal intra cerebral hematoma with surrounding edema and possible minimal -mild mass-effect on the left frontal horn. No midline shift. No dilatation of the right lateral ventricle appreciated. No interval dilatation of other particular segments noted. Prior to this report dictation, the urgent findings of a left intercerebral hematoma was directly called in to the ER physician Dr. Guerrero at approximately 11 :18 am.
[2018-05-14 11:35] LABS: BASO # 0.1 K/uL (0.0-0.2); BASO % 0.5 % (0.0-2.0); EOS # 0.4 K/uL (0.0-0.7); EOS % 3.4 % (0.0-4.0); HEMOGLOBIN 10.5 g/dL (12.0-18.0); LYMPH # 2.4 K/uL (1.0-4.3); LYMPH % 19.4 % (20.0-40.0); MEAN CELL VOLUME 70.2 fl (80.0-94.0); MEAN CORPUSCULAR HEMOGLOBIN 22.6 pg (27.0-31.0); MEAN CORPUSCULAR HGB CONC 32.2 g/dL (33.0-37.0); MEAN PLATELET VOLUME 9.5 fl (7.2-11.7); MONO # 0.8 K/uL (0.0-0.8); MONO % 6.2 % (0.0-10.0); NEUT # 8.6 K/uL (1.8-7.0); NEUT % 70.5 % (50.0-75.0); RBC 4.63 Mil/uL (4.40-5.90); RED CELL DISTRIBUTION WIDTH 19.6 % (11.5-14.5); WHITE BLOOD COUNT 12.3 K/uL (4.8-10.8)
[2018-05-14 11:44] LABS: INR 1.1 (0.9-1.2); PARTIAL THROMBOPLASTIN TIME 28.7 Seconds (25.6-37.1)
[2018-05-14 11:46] LABS: ALB/GLOB RATIO 1.3 (1.0-2.1); ALBUMIN 4.1 g/dL (3.5-5.0); ALT/SGPT 31 U/L (21-72); AST/SGOT 46 U/L (17-59); BLOOD UREA NITROGEN 14 mg/dl (9-20); CALCIUM 9.4 mg/dL (8.4-10.2); GFR AFRICAN-AMERICAN > 60; GFR NON-AFRICAN AMERICAN > 60
--- NOTE | 2018-05-14 11:48 | CP.PCM.PN ---
Subjective - Date & Time of Evaluation Date of Evaluation: 05/14/18 Time of Evaluation: 11:46 - Subjective Subjective: called by ER acute ICH Left fronto-parietal known AVM underlying this no acute surgery but as he did not follow up with neurovascular surgeon in 2013 he probably should be transfered to a facility that has a vascular neurosurgeon for 2 reasons. It would be dangerous to operate on the ICH if it bacame larger without benifit of ability to deal with underlying pathology and he should become known to a program that can deal electivly with the underlying AVM Objective - Vital Signs/Intake and Output Vital Signs (last 24 hours): Temp Pulse Resp BP Pulse Ox 98.5 F 80 18 169/80 H 99 05/14/18 10:39 05/14/18 10:39 05/14/18 10:39 05/14/18 10:39 05/14/18 11:45 - Labs Labs: 05/14/18 11:21 PT 12.0 Seconds (9.8-13.1) 05/14/18 11:21 INR 1.1 (0.9-1.2) 05/14/18 11:21 APTT 28.7 Seconds (25.6-37.1) 05/14/18 11:21
--- NOTE | 2018-05-14 12:33 | CT ---
PROCEDURE: CT Cervical Spine without contrast HISTORY: possible fall COMPARISON: None available. TECHNIQUE: Axial computed tomography images were obtained of the cervical spine without the use of intravenous contrast. Coronal and sagittal reformatted images were created and reviewed. Radiation dose: Total exam DLP = 646 mGy-cm. This CT exam was performed using one or more of the following dose reduction techniques: Automated exposure control, adjustment of the mA and/or kV according to patient size, and/or use of iterative reconstruction technique. FINDINGS: VERTEBRAE: No fracture. Normal alignment. No destructive bony lesion. Diffuse cervical spondylosis, diffuse uncovertebral hypertrophy. Diffuse apophyseal joint hypertrophy. DISCS/SPINAL CANAL/NEURAL FORAMINA: No significant central canal or neural foraminal stenosis. Discs heights most narrowed at C6-7 were subchondral endplate sclerotic changes are present. PARASPINAL SOFT TISSUES: Unremarkable. OTHER FINDINGS: Paranasal sinus inflammatory changes. Cerebral atrophy inferred on portions of the intracranial anatomy included on this field of view. IMPRESSION: No fracture or subluxation. Multilevel arthrosis. Chronic sinus disease.
--- NOTE | 2018-05-14 12:35 | RAD ---
PROCEDURE: Radiographs of the right elbow. HISTORY: right elbow pain COMPARISON: No prior. FINDINGS: BONES: Generalized osteopenia. . No fracture. JOINTS: Normal. No osteoarthritis. SOFT TISSUES: Normal. JOINT EFFUSION: None. OTHER FINDINGS: Phleboliths suggested IMPRESSION: No fracture or dislocation appreciated. Generalized osteopenia. Comments the lateral view is obliqued.
[2018-05-14] MEDS ORDERED: Iodixanol 320 MG/ML 100 ML BOTTLE IV ONE (12:36)
[2018-05-14] MEDS ORDERED: Sodium Chloride 0.9% 50 ML IV ONE (12:36)
[2018-05-14] MEDS ORDERED: Mannitol 12.5 gm/50 ml Inj IV ONE (16:15)
[2018-05-14] MEDS ORDERED: Nicardipine HCl 40 MG/200 ML 40 MG/200 ML SOL IV SCH (16:15)
--- NOTE | 2018-05-14 16:49 | CP.PCM.HP ---
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 He states that currently he feels too weak to walk. Normally he ambulates with a cane. According to EMS the patient had a fall at home last night. In the ED, the patient had a Head CT which revealed an interval left posterior frontal/ parietal intra cerebral hematoma with surrounding edema and possible minimal/ mild mass effect on the left frontal horn. There is no mildline shift at this time. Given these findings, neurosurgery was called- Dr. Fishman stated the patient should be transferred. ER physician called interventional neurologist at [facility], Dr. Bonilla, who stated that if the hematoma was stable after repeat CT scan at 5 pm he could be managed here at [facility]. The patient is currently somnolent but easily arousable; however he is unable to follow commands or answer questions. PMD: Dr. Mendiola Surrogate Decision Maker: Christina Uriarterio, niece (next of kin)- confirmed patient is full code after discussion I had with her Present on Admission - Present on Admission Any Indicators Present on Admission: No History of DVT/PE: No Review of Systems - Review of Systems Systems not reviewed;Unavailable: Altered Mental Status Past Patient History - Infectious Disease Hx of Infectious Diseases: None - Past Medical History & Family History Past Medical History?: Yes Past Family History: Reviewed and not pertinent - Past Social History Smoking Status: Unknown If Ever Smoked Alcohol: None Drugs: Denies - CARDIAC Hx Cardiac Disorders: Yes - PULMONARY Hx Asthma: No Hx Bronchitis: No Hx Chronic Obstructive Pulmonary Disease (COPD): No Hx Emphysema: No Hx Pneumonia: No Hx Pulmonary Embolism: No Hx Sleep Apnea: No - NEUROLOGICAL Hx Neurological Disorder: Yes - HEENT Hx HEENT Problems: Yes - RENAL Hx Chronic Kidney Disease: No - ENDOCRINE/METABOLIC Hx Endocrine Disorders: Yes - HEMATOLOGICAL/ONCOLOGICAL Hx Blood Disorders: No - INTEGUMENTARY Hx Dermatological Problems: No - MUSCULOSKELETAL/RHEUMATOLOGICAL Hx Falls: No - GASTROINTESTINAL Hx Gastrointestinal Disorders: No - GENITOURINARY/GYNECOLOGICAL Hx Genitourinary Disorders: Yes - PSYCHIATRIC Hx Psychophysiologic Disorder: No Hx Substance Use: No - ANESTHESIA Hx Anesthesia: No Hx Anesthesia Reactions: No Meds Allergies/Adverse Reactions: Allergies Allergy/AdvReac Type Severity Reaction Status Date / Time No Known Allergies Allergy Verified 04/28/16 15:57 Physical Exam - Additional Findings Additional findings: Physical exam: Constitutional- cooperative, somnolent but easily arousable. Head- NCAT, PERRL. Eye- PERRL, EOMI. + Cataracts ENT- normal exam, MMM. Neck- normal inspection, supple, no JVD Respiratory- CTAB, no wheezes rales rhonchi Cardiovascular- RRR, +S1, +S2 no MRG GI/Abdominal- normal bowel sounds, soft, no mass, no hsm Skin- warm, dry Extremities Exam- normal capillary refill, normal inspection Neurological Exam- somnolent but easily arousable. Unable to follow commands- limited neuro examination. Psych- not examind Results - Vital Signs Recent Vital Signs: Last Vital Signs Temp 98.2 F 05/14/18 16:34 Pulse 95 H 05/14/18 16:34 Resp 23 05/14/18 16:34 BP 181/84 H 05/14/18 16:34 Pulse Ox 98 05/14/18 16:20 - Labs Result Diagrams: 05/14/18 11:21 05/14/18 11:21 Labs: Laboratory Results - last 24 hr 05/14/18 05/14/18 05/14/18 10:31 11:05 11:21 WBC 12.3 H RBC 4.63 Hgb 10.5 L Hct 32.5 L MCV 70.2 L D MCH 22.6 L MCHC 32.2 L RDW 19.6 H Plt Count 232 MPV 9.5 Neut % (Auto) 70.5 Lymph % (Auto) 19.4 L [place] % (Auto) 6.2 Eos % (Auto) 3.4 Baso % (Auto) 0.5 Neut # (Auto) 8.6 H Lymph # (Auto) 2.4 [place] # (Auto) 0.8 Eos # (Auto) 0.4 Baso # (Auto) 0.1 PT INR APTT Sodium Potassium Chloride Carbon Dioxide Anion Gap BUN Creatinine Est GFR ( Amer) Est GFR (Non-Af Amer) POC Glucose (mg/dL) 201 H 182 H Random Glucose Calcium Total Bilirubin AST ALT Alkaline Phosphatase Troponin I Total Protein Albumin Globulin Albumin/Globulin Ratio 05/14/18 05/14/18 11:21 11:21 WBC RBC Hgb Hct MCV MCH MCHC RDW Plt Count MPV Neut % (Auto) Lymph % (Auto) [place] % (Auto) Eos % (Auto) Baso % (Auto) Neut # (Auto) Lymph # (Auto) [place] # (Auto) Eos # (Auto) Baso # (Auto) PT 12.0 INR 1.1 APTT 28.7 Sodium 138 Potassium 4.2 Chloride 106 Carbon Dioxide 23 Anion Gap 13 BUN 14 Creatinine 0.8 Est GFR ( Amer) > 60 Est GFR (Non-Af Amer) > 60 POC Glucose (mg/dL) Random Glucose 193 H Calcium 9.4 Total Bilirubin 0.6 AST 46 ALT 31 Alkaline Phosphatase 62 Troponin I < 0.0120 Total Protein 7.3 Albumin 4.1 Globulin 3.2 Albumin/Globulin Ratio 1.3 Assessment & Plan - Assessment and Plan (Free Text) Plan: This is an 82 year old male with a past medical history significant for ischemic with residual right sided weakness, chronic iron deficiency anemia of uncertain hypertension, hyperlipidemia, Type 2 diabetes mellitus, obesity, BPH , who presents to [facility] with an acute left posterior frontal/parietal intracerebral hematoma with surrounding edema. 1) Acute left posterior intracerebral hematoma with surrounding edema, with underlying AVM. - Admit to ICU - Neurosurgery consultation with Dr. Fishman - Repeat CT scan at 5 pm, if no changes will keep the patient in house. If CT worsens we will transfer to [place]. - Cardene drip initialized for BP control - Neuro checks q hours - NPO status - PT/ST consult if patient stays - Hold Plavix and any other anticoagulation 2) HTN - Cardene drip as above - monitor 3) Type 2 Diabetes mellitus - Lispro sliding scale with accucheks - Hold Metformin 4) Hyperlipidemia - Restart statin when diet advanced 5) Obesity - chronic 6) BPH - Flomax when able to take PO 7) Iron deficiency anemia - chronic - stable 8) DVT prophylaxis - SCDs
[2018-05-14] MEDS ORDERED: NICARDIPINE ONE (16:55)
[2018-05-14] MEDS ORDERED: Insulin Lispro (humaLOG) 100 Units/ml Inj SC SCH (17:00)
--- NOTE | 2018-05-14 17:18 | CT ---
PROCEDURE: CT HEAD WITHOUT CONTRAST. HISTORY: f/u Left posterior fronto-parietal hemorrhage COMPARISON: CT head performed earlier the same day at approximately 11 a.m.. TECHNIQUE: Axial computed tomography images were obtained through the head/brain without intravenous contrast. Radiation dose: Total exam DLP = 2304.2 mGy-cm. This CT exam was performed using one or more of the following dose reduction techniques: Automated exposure control, adjustment of the mA and/or kV according to patient size, and/or use of iterative reconstruction technique. FINDINGS: HEMORRHAGE: Similar appearance of a parietal hematoma with surrounding edema which impresses upon the posterior portion of the left lateral ventricle. Exact comparison of measurement is difficult due to differences in acquisition plane, but the hematoma appears subjectively larger. BRAIN: Atrophy. Chronic microvascular ischemic changes. Left caudate head lacunar infarction redemonstrated. VENTRICLES: As above. Prominent. No hydrocephalus. IMPRESSION: Subjective mild expansion of the left parietal hematoma with mild surrounding edema impressing upon the posterior portion of the body of the left lateral ventricle. No other significant interval change.
--- NOTE | 2018-05-14 17:34 | CT ---
PROCEDURE: CT Angiography of the Brain. HISTORY: hx L AVM, now ICH COMPARISON: Brain MRI with contrast 04/30/2016. TECHNIQUE: CT angiography of the intracranial and neck arteries was performed. Coronal and sagittal maximum intensity projection reformatted images were generated. Contrast Dose: Visipaque 320, 100 cc Radiation dose:Total exam DLP = 2129.55 mGy-cm. This CT exam was performed using one or more of the following dose reduction techniques: Automated exposure control, adjustment of the mA and/or kV according to patient size, and/or use of iterative reconstruction technique. FINDINGS: INTERNAL CEREBRAL ARTERIES: Moderate bilateral cavernous internal carotid artery segmental atherosclerotic related stenoses are identified. The skull base, petrous, and supraclinoid segments are bilaterally widely patent. ANTERIOR CEREBRAL ARTERIES: Unremarkable. A1 and A2 segments are widely patent. Smaller distal branches unremarkable, as visualized. MIDDLE CEREBRAL ARTERIES: Unremarkable. M1 and M2 segments are widely patent. Perisylvian branches grossly symmetric. POSTERIOR CIRCULATION: Basilar Artery: Unremarkable. Distal Vertebral Arteries: Hypoplastic distal left vertebral artery with resultant right dominant vertebrobasilar circulation. Right vertebral arteries widely patent. Posterior Cerebral Arteries: Unremarkable. Posterior Inferior Cerebellar Arteries: Unremarkable. NECK CTA: Common Carotid arteries: The bilateral common carotid appear widely patent from their origins to their bifurcations with no significant stenosis appreciated. However, a significant atherosclerotic plaques identified in the bilateral carotid bulbs extending into the internal carotid artery origins. No evidence to suggest common carotid artery dissection. Internal Carotid arteries: [id number] stenosis of under 50 percent is seen at the origin of the right internal carotid artery. The stenosis on the order of fifty (5 percent is suggested at the origin of the left internal carotid artery however with remainder of the cervical ICAs bilaterally widely patent. External Carotid arteries: Appear unremarkable bilaterally. Vertebral arteries: Hypoplastic left vertebral artery is identified throughout the majority of its course without occlusion or significant stenosis. Widely patent right vertebral artery. No significant stenosis or definite pattern of dissection. ANEURYSM/ VASCULAR MALFORMATIONS: No aneurysm appreciable. 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 Prominent cortical venous drainage identified cephalad into the superior sagittal sinus. Consider follow-up digital subtraction angiography for more detailed vascular mapping of this arteriovascular malformation. Intraparenchymal hemorrhage is stable at the posterior margins of the AVM. The AVM may have increased in size compared a prior brain MRI with contrast 04/30/2016. OTHER FINDINGS: None. IMPRESSION: 1. 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 The AVM may have increased in size slightly as compared to 04/30/2016 brain MRI with contrast Prominent vertex cortical venous drainage is seen above the AVM as discussed above. Follow-up digital subtraction catheter angiography is advised for added characterization. No aneurysm appreciated grossly. 2. Moderate bilateral ICA stenoses at their cavernous segments as well as [id number] right and moderate left ICA origins stenoses as discussed above. 3. Hypoplastic left vertebral artery with widely patent right vertebral and basilar arteries noted.
[2018-05-14 18:10] LABS: URINE BILIRUBIN NEGATIVE (NEGATIVE); URINE BLOOD NEGATIVE (NEGATIVE); URINE CLARITY CLEAR (Clear); URINE COLOR YELLOW (YELLOW); URINE GLUCOSE (UA) 150 mg/dL (Normal); URINE LEUKOCYTE ESTERASE NEG Leu/uL (Negative); URINE PROTEIN NEGATIVE (NEGATIVE); URINE UROBILINOGEN 0.2-1.0 mg/dL (0.2-1.0)
[2018-05-14 23:21] VITALS: BP 148/79; PULSE 109; RESP 18; TEMP 98.4
--- NOTE | 2018-05-15 08:19 | CARD ---
APPROVED REPORT EKG Measurement Heart [id number] <Conclusion> Normal sinus rhythm Nonspecific ST abnormality Abnormal ECG
[2018-05-15 19:09] VITALS: O2SAT 99
== END 2018-05-14 19:50 | disposition short-term general hospital (02) ==
LOC: H.ER 10:08 → H.ERHOLD 15:37 → UNDOADMIN 15:37 → UNDODISIN 19:50
DX: Q28.2 Arteriovenous malformation of cerebral vessels (principal); I62.9 Nontraumatic intracranial hemorrhage, unspecified; I10 Essential (primary) hypertension; E11.9 Type 2 diabetes mellitus without complications; N40.0 Benign prostatic hyperplasia without lower urinary tract symptoms; E78.5 Hyperlipidemia, unspecified; D50.9 Iron deficiency anemia, unspecified
CPT/HCPCS: 70450; 70496; 70498; 72125; 73080; 80053; 81003; 82948; 84484; 85025; 85610; 85730; 87086; 93005; 96365; 96367; 99291; 99292; J1953; Q9967